=== PATIENT | male | born 1940 | race Caucasian/White ===

== ENCOUNTER 2018-01-14 14:35 | Emergency (ER) | payer SELFPAY, OTHER, MEDICAID | END 2018-01-14 17:42 | disposition left against medical advice (07) | LOC: E/R 14:35 | DX: Z53.21 Procedure and treatment not carried out due to patient leaving prior to being seen by health care provider (principal) ==

== ENCOUNTER 2018-01-15 10:47 | Emergency (ER) | payer OTHER, MEDICAID ==
[2018-01-15 13:09] LABS: ADD MAN DIFF? NO
[2018-01-15 13:11] LABS: WHITE BLOOD COUNT 12.1 10^3/ul (4.8-10.8)
[2018-01-15 13:11] LABS: BASOPHIL # 0.1 10^3/ul (0.0-0.1); BASOPHILS % 0.5 % (0.0-2.0); EOSINOPHILS # 0.1 10^3/ul (0.0-0.5); EOSINOPHILS % 0.6 % (0.0-7.0); HEMATOCRIT 39.9 % (42.0-52.0); HEMOGLOBIN 13.3 g/dl (14.0-18.0); LYMPHOCYTES # 2.6 10^3/ul (0.8-2.9); LYMPHOCYTES % 21.8 % (15.0-51.0); MEAN CORPUSCULAR HEMOGLOBIN 29.3 pg (29.0-33.0); MEAN CORPUSCULAR HGB CONC 33.3 g/dl (32.0-37.0); MEAN CORPUSCULAR VOLUME 87.9 fl (82.0-101.0); MEAN PLATELET VOLUME 9.4 fl (7.4-10.4); MONOCYTE # 0.9 10^3/ul (0.3-0.9); MONOCYTES % 7.6 % (0.0-11.0); NEUTROPHIL # 8.2 10^3/ul (1.6-7.5); NEUTROPHILS % 67.6 % (39.0-77.0); PLATELET COUNT 260 10^3/UL (140-415); RED BLOOD COUNT 4.54 10^6/ul (4.70-6.10); RED CELL DISTRIBUTION WIDTH 11.9 % (11.5-14.5)
[2018-01-15 13:26] LABS: INR 0.93; PROTIME 12.6 Sec (11.9-14.9)
[2018-01-15 13:27] LABS: PARTIAL THROMBOPLASTIN TIME 28.4 Sec (25.0-35.0)
[2018-01-15 13:29] LABS: ANION GAP 16 (8-16); BLOOD UREA NITROGEN 24 mg/dl (7-20); CALCIUM 9.9 mg/dl (8.4-10.2); CARBON DIOXIDE 29 mmol/L (21-31); CHLORIDE 103 mmol/L (97-110); CHOL/HDL RATIO 3.2 RATIO; CHOLESTEROL 194 mg/dl (100-200); CREATININE 1.23 mg/dl (0.61-1.24); GLUCOSE 86 mg/dl (70-220); HDL CHOLESTEROL 60 mg/dl (31-75); LDL CHOLESTEROL,CALCULATED 91 mg/dl; POTASSIUM 4.2 mmol/L (3.5-5.1); SODIUM 144 mmol/L (135-144); TRIGLYCERIDES 216 mg/dl (0-149)
[2018-01-15] MEDS: SOD CHLORIDE 0.9% 1,000 ML IV (13:38)
[2018-01-15] MEDS: MECLIZINE 12.5 MG TAB PO (13:38)
[2018-01-15 13:41] LABS: TROPONIN-I < 0.012 ng/ml (0.00-0.12)
[2018-01-15 13:42] LABS: HEMOGLOBIN A1C 5.3 % (0-5.9)
== END 2018-01-15 16:00 | disposition home or self-care (01) ==
LOC: E/R 10:47
DX: R42 Dizziness and giddiness (principal); I10 Essential (primary) hypertension; G30.9 Alzheimer's disease, unspecified; R06.02 Shortness of breath
CPT/HCPCS: 36415; 70450; 71045; 80048; 80061; 83036; 84484; 85025; 85610; 85730; 93005; 99285-25

== ENCOUNTER 2018-12-20 13:06 | Emergency (ER) | payer OTHER, MEDICAID ==
[2018-12-20 15:04] LABS: ADD MAN DIFF? NO
[2018-12-20 15:09] LABS: WHITE BLOOD COUNT 9.1 10^3/ul (4.8-10.8)
[2018-12-20 15:09] LABS: BASOPHIL # 0.1 10^3/ul (0.0-0.1); BASOPHILS % 0.6 % (0.0-2.0); EOSINOPHILS % 0.4 % (0.0-7.0); HEMOGLOBIN 13.2 g/dl (14.0-18.0); LYMPHOCYTES # 2.3 10^3/ul (0.8-2.9); LYMPHOCYTES % 25.7 % (15.0-51.0); MEAN CORPUSCULAR HEMOGLOBIN 29.5 pg (29.0-33.0); MEAN CORPUSCULAR VOLUME 89.3 fl (82.0-101.0); MEAN PLATELET VOLUME 9.6 fl (7.4-10.4); MONOCYTE # 0.8 10^3/ul (0.3-0.9); MONOCYTES % 8.7 % (0.0-11.0); NEUTROPHIL # 5.7 10^3/ul (1.6-7.5); NEUTROPHILS % 63.1 % (39.0-77.0); PLATELET COUNT 230 10^3/UL (140-415); RED BLOOD COUNT 4.48 10^6/ul (4.70-6.10); RED CELL DISTRIBUTION WIDTH 11.9 % (11.5-14.5)
[2018-12-20 15:12] LABS: INR 0.92; PROTIME 12.5 Sec (11.9-14.9)
[2018-12-20 15:13] LABS: PARTIAL THROMBOPLASTIN TIME 29.2 Sec (23.0-35.0)
[2018-12-20 15:17] LABS: URINE BLOOD (Dip) POC Negative (NEGATIVE); URINE GLUCOSE (Dip) POC Negative (NEGATIVE); URINE KETONES (Dip) POC Trace (NEGATIVE); URINE LEUKOCYTE EST (Dip) POC Negative (NEGATIVE); URINE NITRITE (Dip) POC Negative (NEGATIVE); URINE TOTAL PROTEIN POC Negative (NEGATIVE)
[2018-12-20 15:17] LABS: URINE PH (Dip) POC 5.5 (5.0-8.5)
[2018-12-20 15:18] LABS: ANION GAP 10 (5-13); BLOOD UREA NITROGEN 25 mg/dl (7-20); CALCIUM 9.8 mg/dl (8.4-10.2); CARBON DIOXIDE 27 mmol/L (21-31); CHLORIDE 105 mmol/L (97-110); CREATININE 1.13 mg/dl (0.61-1.24); GLUCOSE 115 mg/dl (70-220); POTASSIUM 4.3 mmol/L (3.5-5.1); SODIUM 142 mmol/L (135-144)
[2018-12-20] MEDS ORDERED: hydrALAzine 20 MG INJ (15:22)
[2018-12-20 15:30] LABS: B-TYPE NATRIURETIC PEPTIDE 340 PG/ML (0-450); TROPONIN-I < 0.012 ng/ml (0.000-0.120)
[2018-12-20] MEDS: hydrALAzine 20 MG INJ IV (16:18)
== END 2018-12-20 17:35 | disposition home or self-care (01) ==
LOC: E/R 13:06
DX: I10 Essential (primary) hypertension (principal); F03.90 Unspecified dementia, unspecified severity, without behavioral disturbance, psychotic disturbance, mood disturbance, and anxiety; D64.9 Anemia, unspecified; R07.9 Chest pain, unspecified; R41.82 Altered mental status, unspecified
CPT/HCPCS: 36415; 70450; 71045; 80048; 81003; 83880; 84484; 85025; 85610; 85730; 93005; 96374; 99285-25